=== PATIENT | male | born 1955 | race Caucasian/White ===

== ENCOUNTER 2023-12-09 11:30 | Observation (INO) ==
[2023-12-09 14:08] LABS: BASOPHILS % (AUTO) 0.4 % (0.2-1.0); EOSINOPHILS % (AUTO) 1.1 % (0.9-2.9); HEMATOCRIT 35.8 % (42.0-54.0); HEMOGLOBIN 11.8 g/dL (13.5-18.0); LYMPHOCYTES # (AUTO) 0.6 X10^3/uL (1.3-2.9); MEAN CORPUSCULAR HEMOGLOBIN 27.6 pg (27.0-34.0); MEAN CORPUSCULAR VOLUME 83.7 fL (80.0-100.0); MEAN PLATELET VOLUME 8.4 fL (7.4-11.0); MONOCYTES # (AUTO) 0.4 x10^3/uL (0.3-0.8); MONOCYTES % (AUTO) 8.9 % (0.0-13.0); NEUTROPHILS # (AUTO) 3.5 x10^3/uL (2.2-4.8); NEUTROPHILS % (AUTO) 76.6 % (42.0-75.0); PLATELET COUNT 302 X10^3/uL (150.0-450.0); RED BLOOD COUNT 4.27 X10^6/uL (4.7-6.0); RED CELL DISTRIBUTION WIDTH 15.5 % (11.6-16.5); WHITE BLOOD COUNT 4.5 X10^3/uL (3.6-10.0)
[2023-12-09 14:22] LABS: ALANINE AMINOTRANSFERASE 40 Units/L (12-78); ALBUMIN 3.2 g/dL (3.4-5.0); ALKALINE PHOSPHATASE 69 Units/L (46-116); ASPARTATE AMINO TRANSFERASE 19 Units/L (15-37); BLOOD UREA NITROGEN 14 mg/dL (7-18); CALCIUM 9.1 mg/dL (8.5-10.1); CARBON DIOXIDE 29.5 mmol/L (21-32); CHLORIDE 103 mmol/L (98-107); COR CA(FOR HYPOALB) 9.7 mg/dL (8.5-10.1); CREATININE 0.91 mg/dL (0.70-1.30); GLUCOSE 104 mg/dL (65-99); POTASSIUM 3.5 mmol/L (3.5-5.1); SODIUM 142 mmol/L (136-145); TOTAL PROTEIN 6.5 g/dL (6.4-8.2); eGFR NON BLACK RACES > 60 (>60)
[2023-12-09 14:24] VITALS: BMI 28.5
--- NOTE | 2023-12-09 14:28 | EKG ---
Test Reason : elevated BP Blood Pressure : */* mmHG Vent. Rate : 63 BPM Atrial Rate : 63 BPM P-R Int : 188 ms QRS Dur : 134 ms QT Int : 452 ms P-R-T Axes : -12 24 6 degrees QTc Int : 462 ms Normal sinus rhythm Right bundle branch block Nonspecific T wave abnormality Abnormal ECG When compared with ECG of 08-DEC-2023 17:16, No significant change was found Confirmed by Mahendra Ayala MD ([id number]) on 12/10/2023 7:45:46 AM Referred By: Confirmed By: Mahendra Ayala MD
[2023-12-09] MEDS ORDERED: CONSULT PHARMACY - POTASSIUM & MAGNESIUM XX SCH (15:00)
[2023-12-09] MEDS: ULTRAM PO PRN (15:56)
[2023-12-09] MEDS: JANUVIA PO SCH (15:56)
[2023-12-09] MEDS: ZESTRIL TAB 5 MG PO SCH (15:56)
[2023-12-09] MEDS: TOPROL XL PO SCH (15:56)
[2023-12-09] MEDS: APRESOLINE INJ 20 MG VIAL IVP PRN (17:27)
[2023-12-09] MEDS: CRESTOR TAB 10 MG PO SCH (21:03)
[2023-12-09] MEDS: GLUCOPHAGE XR 24-HR PO SCH (21:03)
[2023-12-09] MEDS: CATAPRES TAB 0.2 MG PO SCH (21:03)
[2023-12-09] MEDS: ELIQUIS PO SCH (21:03)
[2023-12-09] MEDS: K-DUR TAB 20 MEQ PO SCH (21:03)
[2023-12-09] MEDS: NEURONTIN CAP 300 MG PO SCH (21:03)
[2023-12-09] MEDS: PROTONIX TAB 40 MG PO SCH (21:03)
[2023-12-09] MEDS: FLOMAX PO SCH (21:03)
--- NOTE | 2023-12-09 23:33 | US ---
EXAM: RENAL SCAN HISTORY: resistant HTN; RESISTANT HTN COMPARISON: No relevant prior studies available. TECHNIQUE: Grayscale and color Doppler images of the kidneys/bladder. FINDINGS: Right kidney: measures 11.2 x 6.4 cm. Renal cortex measures 1 cm. Resistive index 0.69. Normal appearance of the parenchyma. Moderate hydronephrosis. Hyperdensities in the right kidney are concerning for nephroliths. Left kidney: measures 10.4 x 5.9 x 5.3 cm. Renal cortex measures 1.4 cm. Resistive index 0.78 Normal appearance of the parenchyma. Hyperdensities in the left kidney are concerning for nephroliths. Urinary bladder: Bladder wall appears normal in width and echogenicity. No debris or calculi. Prevoid volume 260 mL IMPRESSION: Moderate nonspecific right hydronephrosis. Findings are concerning for bilateral nephroliths. Consi dering noncontrast CT abdomen/pelvis study for further evaluation to assess for the site of the right ureteral obstruction. THIS IS AN ELECTRONICALLY VERIFIED FINAL REPORT 12/09/2023 11:30 PM - Electronically signed by Kevin George MD
[2023-12-10 05:54] LABS: BASOPHILS % (AUTO) 0.5 % (0.2-1.0); EOSINOPHILS # (AUTO) 0.1 x10^3/uL (0.0-0.2); EOSINOPHILS % (AUTO) 1.4 % (0.9-2.9); HEMATOCRIT 35.5 % (42.0-54.0); HEMOGLOBIN 11.6 g/dL (13.5-18.0); LYMPHOCYTES # (AUTO) 0.9 X10^3/uL (1.3-2.9); LYMPHOCYTES % (AUTO) 16.5 % (21.0-51.0); MEAN CORPUSCULAR HEMOGLOBIN 27.5 pg (27.0-34.0); MEAN CORPUSCULAR HGB CONC 32.8 g/dL (33.0-35.0); MEAN CORPUSCULAR VOLUME 83.8 fL (80.0-100.0); MEAN PLATELET VOLUME 8.5 fL (7.4-11.0); MONOCYTES # (AUTO) 0.5 x10^3/uL (0.3-0.8); MONOCYTES % (AUTO) 9.8 % (0.0-13.0); NEUTROPHILS # (AUTO) 3.8 x10^3/uL (2.2-4.8); NEUTROPHILS % (AUTO) 71.8 % (42.0-75.0); PLATELET COUNT 295 X10^3/uL (150.0-450.0); RED BLOOD COUNT 4.24 X10^6/uL (4.7-6.0); RED CELL DISTRIBUTION WIDTH 15.7 % (11.6-16.5); WHITE BLOOD COUNT 5.3 X10^3/uL (3.6-10.0)
[2023-12-10 06:07] LABS: ALANINE AMINOTRANSFERASE 38 Units/L (12-78); ALKALINE PHOSPHATASE 70 Units/L (46-116); ASPARTATE AMINO TRANSFERASE 21 Units/L (15-37); BLOOD UREA NITROGEN 15 mg/dL (7-18); CARBON DIOXIDE 31.1 mmol/L (21-32); CHLORIDE 103 mmol/L (98-107); COR CA(FOR HYPOALB) 9.8 mg/dL (8.5-10.1); COR NA(FOR HYPERGLY) 143 mmol/L (136-145); CREATININE 0.96 mg/dL (0.70-1.30); GLUCOSE 126 mg/dL (65-99); MAGNESIUM 1.6 mg/dL (2.0-2.9); POTASSIUM 3.7 mmol/L (3.5-5.1); SODIUM 142 mmol/L (136-145); TOTAL PROTEIN 6.3 g/dL (6.4-8.2); eGFR NON BLACK RACES > 60 (>60)
[2023-12-10] MEDS ORDERED: CONSULT PHARMACY - POTASSIUM & MAGNESIUM XX SCH (07:00)
[2023-12-10] MEDS: MAG-OX TAB PO SCH ×2 (09:39→13:49)
[2023-12-10] MEDS: K-DUR TAB 20 MEQ PO SCH (09:40)
[2023-12-10] MEDS: ZESTRIL TAB 5 MG PO SCH (09:43)
[2023-12-10] MEDS ORDERED: CATAPRES TAB 0.2 MG PO PRN (09:45)
--- NOTE | 2023-12-10 10:52 | DR.H&P ---
H&P History & Physical for Day of: H&P Date: 12/10/23 Chief Complaint Chief Complaint: elevated BP and dizziness Allergies Allergies Allergy/AdvReac Type Severity Reaction Status Date / Time amoxicillin [From Augmentin] Allergy Verified 12/08/23 15:46 clavulanic acid Allergy Verified 12/08/23 15:46 [From Augmentin] History of Present Illness History of Present Illness: Mr Yanez is a 68y/o male with a PMH of DM, GERD and HTN who presented with uncontrolled BP. Patient has been having elevated BP readings and was being treated outpatient. He did go to the ER on 12/08/23, all the work-up was negative. He was discharged on clonidine but continued to have SBP in 200s. He was directly admitted from his PCP office. He is feeling better today. He did receive one dose of IV hydralazine yesterday. His BP this morning is 115/60. He had renal US done yesterday which showed right hydronephrosis due to renal stone, CTAP is recommended. Patient reports having a hx of renal stones, not having symptoms at this time. He denies chest pain or SOB. He does report having some pain in his shoulder blades, denies any fall or injury. Patient reports going through a stressful time last week with losing his pet. Labs/imaging reviewed -Hgb 11.6 K:3.7 Mag 1.6 -Renal US reviewed Plan: Continue to monitor on telemetry, monitor BP. Resume home medications lisinopril and metoprolol succinate. Will change clonidine to prn. Carotid US and Echo ordered. CTAP pending to follow up on renal US. Replace Mag. Monitor AM labs/imaging. Past Medical History Past Medical History: Diabetes, GERD and Hypertension Family History Family Medical History: Diabetes Mellitus and [place] Social History Does patient currently use any type of tobacco product: No Type of Tobacco Use: None Does any household member use tobacco: No Alcohol Use: None Drug Use: None Medications Home Medications: Home Medications Medication Instructions Recorded Confirmed Type apixaban 5 mg tablet (Eliquis) 5 mg PO BID 12/08/23 12/09/23 History gabapentin 300 mg capsule 300 mg PO TID 12/08/23 12/09/23 History hydrochlorothiazide 12.5 mg capsule 12.5 mg PO QDAY PRN 12/08/23 12/09/23 History lisinopril 5 mg tablet 5 mg PO QDAY 12/08/23 12/09/23 History metoprolol succinate 50 mg 50 mg PO QDAY 12/08/23 12/09/23 History tablet,extended release 24 hr pantoprazole 40 mg tablet,delayed 40 mg PO BID 12/08/23 12/09/23 History release rosuvastatin 10 mg tablet 10 mg PO QPM 12/08/23 12/09/23 History sitagliptin phosphate 50 1 tab PO BID 12/08/23 12/09/23 History mg-metformin 500 mg tablet (Augeris) tamsulosin 0.4 mg capsule 0.4 mg PO QDAY 12/08/23 12/09/23 History Labs 12/10/23 05:30 12/10/23 05:30 Labs: Laboratory WBC 5.3 X10^3/uL (3.6-10.0) 12/10/23 05:30 RBC 4.24 X10^6/uL (4.7-6.0) L 12/10/23 05:30 Hgb 11.6 g/dL (13.5-18.0) L 12/10/23 05:30 Hct 35.5 % (42.0-54.0) L 12/10/23 05:30 MCV 83.8 fL (80.0-100.0) 12/10/23 05:30 MCH 27.5 pg (27.0-34.0) 12/10/23 05:30 MCHC 32.8 g/dL (33.0-35.0) L 12/10/23 05:30 RDW 15.7 % (11.6-16.5) 12/10/23 05:30 Plt Count 295 X10^3/uL (150.0-450.0) 12/10/23 05:30 MPV 8.5 fL (7.4-11.0) 12/10/23 05:30 Neut % (Auto) 71.8 % (42.0-75.0) 12/10/23 05:30 Lymph % (Auto) 16.5 % (21.0-51.0) L 12/10/23 05:30 [place] % (Auto) 9.8 % (0.0-13.0) 12/10/23 05:30 Eos % (Auto) 1.4 % (0.9-2.9) 12/10/23 05:30 Baso % (Auto) 0.5 % (0.2-1.0) 12/10/23 05:30 Neut # (Auto) 3.8 x10^3/uL (2.2-4.8) 12/10/23 05:30 Lymph # (Auto) 0.9 X10^3/uL (1.3-2.9) L 12/10/23 05:30 [place] # (Auto) 0.5 x10^3/uL (0.3-0.8) 12/10/23 05:30 Eos # (Auto) 0.1 x10^3/uL (0.0-0.2) 12/10/23 05:30 Baso # (Auto) 0.0 X10^3/uL (0.0-0.1) 12/10/23 05:30 Absolute Nucleated RBC 0.1 /100WBC 12/10/23 05:30 Sodium 142 mmol/L (136-145) 12/10/23 05:30 Corrected Sodium 143 mmol/L (136-145) 12/10/23 05:30 Potassium 3.7 mmol/L (3.5-5.1) 12/10/23 05:30 Chloride 103 mmol/L (98-107) 12/10/23 05:30 Carbon Dioxide 31.1 mmol/L (21-32) 12/10/23 05:30 BUN 15 mg/dL (7-18) 12/10/23 05:30 Creatinine 0.96 mg/dL (0.70-1.30) 12/10/23 05:30 Est GFR (MDRD) Af Amer > 60 (>60) 12/10/23 05:30 Est GFR (MDRD) Non-Af > 60 (>60) 12/10/23 05:30 Glucose 126 mg/dL (65-99) H 12/10/23 05:30 Calcium 9.0 mg/dL (8.5-10.1) 12/10/23 05:30 Corrected Calcium 9.8 mg/dL (8.5-10.1) 12/10/23 05:30 Magnesium 1.6 mg/dL (2.0-2.9) L 12/10/23 05:30 Total Bilirubin 0.40 mg/dL (0.2-1.0) 12/10/23 05:30 AST 21 Units/L (15-37) 12/10/23 05:30 ALT 38 Units/L (12-78) 12/10/23 05:30 Alkaline Phosphatase 70 Units/L (46-116) 12/10/23 05:30 Troponin I High Sens 8.6 ng/L (4.0-60.0) 12/09/23 19:48 B-Natriuretic Peptide 83.9 pg/mL (0-79) H 12/09/23 13:50 Total Protein 6.3 g/dL (6.4-8.2) L 12/10/23 05:30 Albumin 3.0 g/dL (3.4-5.0) L 12/10/23 05:30 Globulin 3.3 g/dL (2.5-4.5) 12/10/23 05:30 Albumin/Globulin Ratio 0.9 Ratio (1.1-2.1) L 12/10/23 05:30 Review of Systems Constitutional: No Symptoms Reported Eyes: No Symptoms Reported ENT: No Symptoms Reported Respiratory: No Symptoms Reported Cardiovascular: No Symptoms Reported Gastrointestinal: No Symptoms Reported Genitourinary: No Symptoms Reported Musculoskeletal: No Symptoms Reported Skin: No Symptoms Reported Neurological: No Symptoms Reported Physical Exam Vital Signs: Vital Signs Temperature 97.6 F Temperature 98.1 F Pulse Rate [Left Brachial] 63 Pulse Rate [Left Brachial] 67 Respiratory Rate 18 Respiratory Rate 20 Blood Pressure [Left Arm] 115/60 Blood Pressure [Left Arm] 172/77 O2 Sat by Pulse Oximetry 97 O2 Sat by Pulse Oximetry 96 Oriented: Normal Eyes: Normal Nose: Normal Throat: Normal Respiratory: Clear Throughout Cardiovascular: Normal Auscultation: Bowel Sounds: Normal Palpation: Normal Tenderness: Normal Skin: Normal Musculoskeletal: Normal Psychiatric: Normal Mood Description: Calm Affect: Normal Speech Pattern: Clear and Appropriate Assessment/Plan (1) Accelerated hypertension: Status: Acute (2) Hypomagnesemia: Status: Acute (3) Nephrolith: Status: Acute (4) Dizziness: Status: Acute
--- NOTE | 2023-12-10 15:13 | CT ---
EXAM:CT ABDOMEN AND PELVIS WITHOUT CONTRAST (STONE STUDY)HISTORY:F/U RENAL US;COMPARISON:Renal sonogram December 09, 2023.TECHNIQUE:Axial CT images were obtained through the urinary tract without contrast. Coronal reformatted images were included.All CT scans at this facility use dose modulation, iterative reconstruction, and/or weight based dosing when appropriate to reduce radiation dose to as low as reasonably achievable.FINDINGS:Please note that without the use of intravenous contrast, evaluation of organ parenchyma is limited.URINARY TRACT: Bilateral nephrolithiasis noted. Nonobstructing intrarenal stones are noted bilaterally, measuring up to 4 mm at the left renal midzone. There is severe right hydroureteronephrosis secondary to a large obstructing distal right ureteral stone measuring approximately 13 mm in size. Right distal ureter appears normal caliber. Urinary bladder is partially decompressed.LOWER THORAX: Within normal limits.LIVER: Within normal limits, as visualized.GALLBLADDER: Within normal limits.SPLEEN: Within normal limits, as visualized.PANCREAS: Within normal limits, as visualized.ADRENAL GLANDS: Within normal limits.GI TRACT: No evidence of bowel obstruction. Normal appendix.LYMPH NODES: No lymphadenopathyVESSELS: Moderate atherosclerosis.PERITONEUM / RETROPERITONEUM: No free fluid or gas.GENITALS: Within normal limits.BONES: Degenerative changes noted within the lumbar spine and pelvis. No suspicious lytic or blastic lesions.IMPRESSION:Severe right hydroureteronephrosis secondary to obstructing right ureteral 13 mm stone. Nonobstructing renal stones are noted bilaterally.THIS IS AN ELECTRONICALLY VERIFIED FINAL REPORT12/10/2023 3:10 PM - Electronically signed by Don Phan MD
--- NOTE | 2023-12-10 15:45 | VAS ---
EXAM:CAROTID USHISTORY:elevated BP; HTN HACOMPARISON:None available.TECHNIQUE:Multiple myers scale, duplex and color flow Doppler images of the right and left carotid arterial system were obtained. The vertebral arterial system was evaluated as well.FINDINGS:Nonocclusive color flow Doppler is seen throughout the right and left carotid arterial system.There is [id number] atherosclerotic plaque formation of the bilateral carotid bulbs and proximal ICAs with associated intimal thickening but without evidence for high-grade stenosis (>70%) or occlusion of the carotid arteries. The right and left vertebral artery demonstrate antegrade flow.There is patent flow and normal duplex waveforms within the right and left external carotid arteries.Peak right ICA velocity: 103 centimeter/seconds.Peak right CCA velocity: 106 centimeter/seconds.Right ICA to CCA ratio: 2.2.Peak left ICA velocity: 123 centimeter/seconds.Peak left CCA velocity: 98 centimeter/seconds.Left ICA to CCA ratio: 1.7.IMPRESSION:No hemodynamically significant carotid artery stenosis is seen.[id number] bilateral CCA and proximal ICA atherosclerosis.Appropriate, antegrade, vertebral arterial flow seen bilaterally..THIS IS AN ELECTRONICALLY VERIFIED FINAL REPORT12/10/2023 3:42 PM - Electronically signed by Carlos Wilson
[2023-12-11 04:10] VITALS: RESP 18
[2023-12-11 05:26] LABS: BASOPHILS % (AUTO) 0.2 % (0.2-1.0); EOSINOPHILS # (AUTO) 0.1 x10^3/uL (0.0-0.2); EOSINOPHILS % (AUTO) 1.4 % (0.9-2.9); HEMATOCRIT 33.8 % (42.0-54.0); HEMOGLOBIN 11.1 g/dL (13.5-18.0); LYMPHOCYTES # (AUTO) 0.8 X10^3/uL (1.3-2.9); LYMPHOCYTES % (AUTO) 13.9 % (21.0-51.0); MEAN CORPUSCULAR HEMOGLOBIN 27.4 pg (27.0-34.0); MEAN CORPUSCULAR HGB CONC 32.7 g/dL (33.0-35.0); MEAN CORPUSCULAR VOLUME 83.7 fL (80.0-100.0); MEAN PLATELET VOLUME 8.7 fL (7.4-11.0); MONOCYTES # (AUTO) 0.5 x10^3/uL (0.3-0.8); MONOCYTES % (AUTO) 9.5 % (0.0-13.0); NEUTROPHILS # (AUTO) 4.1 x10^3/uL (2.2-4.8); PLATELET COUNT 257 X10^3/uL (150.0-450.0); RED BLOOD COUNT 4.04 X10^6/uL (4.7-6.0); RED CELL DISTRIBUTION WIDTH 15.5 % (11.6-16.5); WHITE BLOOD COUNT 5.4 X10^3/uL (3.6-10.0)
[2023-12-11 05:45] LABS: ALANINE AMINOTRANSFERASE 37 Units/L (12-78); ALBUMIN 2.7 g/dL (3.4-5.0); ALKALINE PHOSPHATASE 63 Units/L (46-116); ASPARTATE AMINO TRANSFERASE 19 Units/L (15-37); BLOOD UREA NITROGEN 17 mg/dL (7-18); CALCIUM 8.7 mg/dL (8.5-10.1); CHLORIDE 107 mmol/L (98-107); COR CA(FOR HYPOALB) 9.7 mg/dL (8.5-10.1); COR NA(FOR HYPERGLY) 144 mmol/L (136-145); CREATININE 0.95 mg/dL (0.70-1.30); GLUCOSE 115 mg/dL (65-99); MAGNESIUM 1.8 mg/dL (2.0-2.9); POTASSIUM 3.5 mmol/L (3.5-5.1); SODIUM 144 mmol/L (136-145); TOTAL PROTEIN 5.7 g/dL (6.4-8.2); eGFR NON BLACK RACES > 60 (>60)
[2023-12-11] MEDS ORDERED: CONSULT PHARMACY - POTASSIUM & MAGNESIUM XX SCH (06:00)
[2023-12-11 08:24] VITALS: BP 149/71; PULSE 64; O2SAT 97
[2023-12-11 08:27] VITALS: TEMP 97.6
[2023-12-11] MEDS: K-DUR TAB 20 MEQ PO SCH (08:53)
[2023-12-11] MEDS: MAG-OX TAB PO SCH (08:53)
[2023-12-11] MEDS: ZESTRIL TAB 5 MG PO SCH (08:54)
[2023-12-11] MEDS: K-DUR TAB 20 MEQ PO ONE (08:55)
--- NOTE | 2023-12-11 12:18 | W.DIS.FURT ---
Summary of Discharge Discharge Summary of Date Date of Exam: 12/11/23 Admission Date Date of Admission: 12/09/23 Admission Diagnosis Hospital Course: Mr Yanez is a 68y/o male with a PMH of DM, GERD and HTN who presented with uncontrolled BP. Patient has been having elevated BP readings and was being treated outpatient. He did go to the ER on 12/08/23, all the work-up was negative. He was discharged on clonidine but continued to have SBP in 200s. He was directly admitted from his PCP office. His labs were monitored and electrolytes replaced as needed. Cardiac enzymes were negative. Renal US showed several renal stones and recommended CTAP. CTAP showed severe right ureteral hydronephrosis due to 13mm stone. Patient did not have any symptoms. His renal function was normal. He does not see Urology. Echo and carotid US did not show a ny significant abnormalities. Patient's BP was better. He was ambulating in the room. He will be discharged on lisinopril 5mg, metoprolol succinate 50 mg and clonidine prn for SBP>160. He will follow up with PCP and urology as scheduled. Vital Signs: Vital Signs (72 hours) 12/08/23 19:45 12/09/23 14:08 12/09/23 16:00 Temperature 97.6 F Pulse Rate [Left Brachial] 58 L Respiratory Rate 18 Blood Pressure 177/83 Blood Pressure [Left Arm] 203/89 Blood Pressure [Right Arm] O2 Sat by Pulse Oximetry 97 Oxygen Delivery Method Room Air Room Air 12/09/23 13:30 12/09/23 15:56 12/09/23 16:56 Temperature 97.9 F Pulse Rate [Left Brachial] 71 Respiratory Rate 18 18 18 Blood Pressure Blood Pressure [Left Arm] 181/80 Blood Pressure [Right Arm] O2 Sat by Pulse Oximetry 98 Oxygen Delivery Method Room Air 12/09/23 18:29 12/09/23 20:00 12/09/23 19:00 Temperature 98.1 F Pulse Rate [Left Brachial] 69 Respiratory Rate 20 Blood Pressure Blood Pressure [Left Arm] 186/83 177/79 Blood Pressure [Right Arm] O2 Sat by Pulse Oximetry 97 Oxygen Delivery Method Room Air Room Air 12/10/23 00:00 12/10/23 04:00 12/10/23 07:00 Temperature 98.1 F 98.1 F Pulse Rate [Left Brachial] 65 67 Respiratory Rate 19 20 Blood Pressure Blood Pressure [Left Arm] 145/70 172/77 Blood Pressure [Right Arm] O2 Sat by Pulse Oximetry 96 96 Oxygen Delivery Method Room Air Room Air Room Air 12/10/23 08:00 12/10/23 12:00 12/10/23 16:00 Temperature 97.6 F 97.1 F L 97.1 F L Pulse Rate [Left Brachial] 63 67 61 Respiratory Rate 18 18 18 Blood Pressure Blood Pressure [Left Arm] 115/60 138/66 167/79 Blood Pressure [Right Arm] O2 Sat by Pulse Oximetry 97 98 97 Oxygen Delivery Method Room Air Room Air Room Air 12/10/23 20:00 12/10/23 19:00 12/11/23 00:00 Temperature 97.8 F 98.4 F Pulse Rate [Left Brachial] 65 68 Respiratory Rate 20 20 Blood Pressure Blood Pressure [Left Arm] 170/79 Blood Pressure [Right Arm] 160/76 O2 Sat by Pulse Oximetry 96 97 Oxygen Delivery Method Room Air Room Air Room Air 12/11/23 04:00 12/11/23 04:00 12/11/23 07:00 Temperature 98.1 F 98.1 F Pulse Rate [Left Brachial] 62 62 Respiratory Rate 20 18 Blood Pressure Blood Pressure [Left Arm] 169/70 169/70 Blood Pressure [Right Arm] O2 Sat by Pulse Oximetry 96 96 Oxygen Delivery Method Room Air Room Air Room Air 12/11/23 08:00 Temperature 97.6 F Pulse Rate [Left Brachial] 64 Respiratory Rate 18 Blood Pressure Blood Pressure [Left Arm] 149/71 Blood Pressure [Right Arm] O2 Sat by Pulse Oximetry 97 Oxygen Delivery Method Room Air Labs: Laboratory Last Values WBC 5.4 X10^3/uL (3.6-10.0) 12/11/23 04:48 RBC 4.04 X10^6/uL (4.7-6.0) L 12/11/23 04:48 Hgb 11.1 g/dL (13.5-18.0) L 12/11/23 04:48 Hct 33.8 % (42.0-54.0) L 12/11/23 04:48 MCV 83.7 fL (80.0-100.0) 12/11/23 04:48 MCH 27.4 pg (27.0-34.0) 12/11/23 04:48 MCHC 32.7 g/dL (33.0-35.0) L 12/11/23 04:48 RDW 15.5 % (11.6-16.5) 12/11/23 04:48 Plt Count 257 X10^3/uL (150.0-450.0) 12/11/23 04:48 MPV 8.7 fL (7.4-11.0) 12/11/23 04:48 Neut % (Auto) 75.0 % (42.0-75.0) 12/11/23 04:48 Lymph % (Auto) 13.9 % (21.0-51.0) L 12/11/23 04:48 [place] % (Auto) 9.5 % (0.0-13.0) 12/11/23 04:48 Eos % (Auto) 1.4 % (0.9-2.9) 12/11/23 04:48 Baso % (Auto) 0.2 % (0.2-1.0) 12/11/23 04:48 Neut # (Auto) 4.1 x10^3/uL (2.2-4.8) 12/11/23 04:48 Lymph # (Auto) 0.8 X10^3/uL (1.3-2.9) L 12/11/23 04:48 [place] # (Auto) 0.5 x10^3/uL (0.3-0.8) 12/11/23 04:48 Eos # (Auto) 0.1 x10^3/uL (0.0-0.2) 12/11/23 04:48 Baso # (Auto) 0.0 X10^3/uL (0.0-0.1) 12/11/23 04:48 Absolute Nucleated RBC 0.0 /100WBC 12/11/23 04:48 Sodium 144 mmol/L (136-145) 12/11/23 04:48 Corrected Sodium 144 mmol/L (136-145) 12/11/23 04:48 Potassium 3.5 mmol/L (3.5-5.1) 12/11/23 04:48 Chloride 107 mmol/L (98-107) 12/11/23 04:48 Carbon Dioxide 29.0 mmol/L (21-32) 12/11/23 04:48 BUN 17 mg/dL (7-18) 12/11/23 04:48 Creatinine 0.95 mg/dL (0.70-1.30) 12/11/23 04:48 Est GFR (MDRD) Af Amer > 60 (>60) 12/11/23 04:48 Est GFR (MDRD) Non-Af > 60 (>60) 12/11/23 04:48 Glucose 115 mg/dL (65-99) H 12/11/23 04:48 Calcium 8.7 mg/dL (8.5-10.1) 12/11/23 04:48 Corrected Calcium 9.7 mg/dL (8.5-10.1) 12/11/23 04:48 Magnesium 1.8 mg/dL (2.0-2.9) L 12/11/23 04:48 Total Bilirubin 0.40 mg/dL (0.2-1.0) 12/11/23 04:48 AST 19 Units/L (15-37) 12/11/23 04:48 ALT 37 Units/L (12-78) 12/11/23 04:48 Alkaline Phosphatase 63 Units/L (46-116) 12/11/23 04:48 Troponin I High Sens 8.6 ng/L (4.0-60.0) 12/09/23 19:48 B-Natriuretic Peptide 83.9 pg/mL (0-79) H 12/09/23 13:50 Total Protein 5.7 g/dL (6.4-8.2) L 12/11/23 04:48 Albumin 2.7 g/dL (3.4-5.0) L 12/11/23 04:48 Globulin 3.0 g/dL (2.5-4.5) 12/11/23 04:48 Albumin/Globulin Ratio 0.9 Ratio (1.1-2.1) L 12/11/23 04:48 Reason For Visit: HYPERTENSION Discharge Diagnosis All Active Problems (Updated 12/10/23 @ 10:51 by Alicja More) Dizziness (Acute) Nephrolith (Acute) Hypomagnesemia (Acute) Accelerated hypertension (Acute) Hypertension (Acute) Plan of Treatment: Continue with present treatment and follow up plan. Pt is to keep follow up appointment as instructed and take medications as ordered. Discharge Medications Discharge Medications: amoxicillin [From Augmentin] Allergy (Verified 12/08/23 15:46) clavulanic acid [From Augmentin] Allergy (Verified 12/08/23 15:46) New Prescriptions clonidine HCl 0.2 mg tablet 0.2 mg PO BID PRN BP> 160 30 days #60 tabs 12/11/23 [Rx] magnesium oxide 400 mg (241.3 mg magnesium) tablet 400 mg PO BID 5 days #10 tabs 12/11/23 [Rx] Discharge Disposition Discharge Disposition: home Discharge Condition: stable Discharge Plan Discharge Plan Hospital Course: Mr Yanez is a 68y/o male with a PMH of DM, GERD and HTN who presented with uncontrolled BP. Patient has been having elevated BP readings and was being treated outpatient. He did go to the ER on 12/08/23, all the work-up was ne leora. He was discharged on clonidine but continued to have SBP in 200s. He was directly admitted from his PCP office. His labs were monitored and electrolytes replaced as needed. Cardiac enzymes were negative. Renal US showed several renal stones and recommended CTAP. CTAP showed severe right ureteral hydronephrosis due to 13mm stone. Patient did not have any symptoms. His renal function was normal. He does not see Urology. Echo and carotid US did not show any significant abnormalities. Patient's BP was better. He was ambulating in the room. He will be discharged on lisinopril 5mg, metoprolol succinate 50 mg and clonidine prn for SBP>160. He will follow up with PCP and urology as scheduled. Patient Disposition: HOME, SELF-CARE Condition: Stable Health Concerns: Post Hospitalization: new medications and changes needed to prevent readmission or further decline. Pt educated and given instructions on all concerns. Care Plan Goals: Problem: Cardiac Complications Goal: Early Recognition of cardiac complications for prompt intervention Instructions: Follow provided instructions. Follow up with primary physician as directed. Contact primary care physician or report to the closest Emergency Room if condition worsens. Plan of Treatment: Continue with present treatment and follow up plan. Pt is to keep follow up appointment as instructed and take medications as ordered. Prescription drug monitoring program results: PDMP reviewed and no concerns identified Prescriptions: New magnesium oxide 400 mg (241.3 mg magnesium) Tablet 400 mg PO BID 5 Days Qty: 10 0RF Continued metoprolol succinate 50 mg tablet extended release 24 hr 50 mg PO QDAY tamsulosin 0.4 mg capsule 0.4 mg PO QDAY pantoprazole 40 mg tablet,delayed release (DR/EC) 40 mg PO BID gabapentin 300 mg capsule 300 mg PO TID lisinopril 5 mg tablet 5 mg PO QDAY rosuvastatin 10 mg tablet 10 mg PO QPM Janumet 50-500 mg tablet 1 tab PO BID Eliquis 5 mg tablet 5 mg PO BID Patient Comments: new prescription, mever filled Changed clonidine HCl 0.2 mg tablet 0.2 mg PO BID PRN (Reason: BP> 160) 30 Days Qty: 60 0RF Patient Comments: new presecription, never filled Discontinued hydrochlorothiazide 12.5 mg capsule 12.5 mg PO QDAY PRN Orders to Discharge Patient Discharge Orders: Discharge (Routine); Ordered 12/11/23 Ordered By: Alicja More Follow ups/Referrals Follow ups/Referrals: Melida Abdi [Nurse Practitioner] - 12/19/23 9:30 am LENO CALVILLO [CONSULTING PHYSICIAN] - 12/12/23 (Office will call you with appointment time.) Instructions Instructions: Low-Purine Eating Plan, Hypomagnesemia, Kidney Stones, [id number], Hypertension, Adult, [id number], Lithotripsy, Managing Your Hypertension Stand Alone Forms: Post Hospital Follow Up Care
== END 2023-12-11 11:10 | disposition home or self-care (01) ==
LOC: MED/SURG
PROVIDERS: ADMIT Internal Medicine; ATTEND Internal Medicine
DX: K21.9 Gastro-esophageal reflux disease without esophagitis; I16.0 Hypertensive urgency; R94.31 Abnormal electrocardiogram [ECG] [EKG]; R51.9 Headache, unspecified; E11.65 Type 2 diabetes mellitus with hyperglycemia; N13.2 Hydronephrosis with renal and ureteral calculous obstruction; R42 Dizziness and giddiness; E83.42 Hypomagnesemia; Z87.442 Personal history of urinary calculi